=== PATIENT | male | born 1990 | race Caucasian/White ===

== ENCOUNTER 2020-11-29 17:29 | Emergency (ER) | payer BC, SELFPAY ==
[2020-11-29 18:15] VITALS: BP 150/76; PULSE 84; RESP 18; TEMP 36.6; O2SAT 99; BMI 31.9
--- NOTE | 2020-11-29 19:29 | ED_ITS ---
HPI - Eye Problem General Chief complaint: Eye Problems Stated complaint: FB in eye - work related Time Seen by Provider: 11/29/20 19:21 Source: patient Mode of arrival: ambulatory Limitations: no limitations History of Present Illness HPI Narrative: 30 y/o male presenting with acute onset of right eye pain, redness and watering after he had material go into his eye while working on wiring in a ceiling. He was not wearing protective eyewear. He does not wear contacts or glasses. He reports immediate pain and difficulty keeping his eye open. 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 chief complaint: eye pain and eye redness Onset (ago): hour(s) (2) Onset description: sudden Duration: constant Location: right eye Eye Symptoms: redness and pain Place: work Mechanism: direct trauma Severity: moderate If Pain, Quality: sharp and aching Associated symptoms: none Treatments Prior to Arrival: irrigated eye Related Data Patient tetanus UTD: Yes Previous Rx's Medication Instructions Recorded gentamicin 1 drp OPHTHALMIC-RIGHT Q4H #5 ml 11/29/20 Allergies Allergy/AdvReac Type Severity Reaction Status Date / Time No Known Allergies Allergy Verified 11/29/20 18:15 Review of Systems Review of Systems: Constitutional: No Fever, No Chills ENT/Mouth: No sore throat, No Rhinorrhea, No Swallowing Difficulty Eyes: + Eye Pain, No Swelling, + Redness, No vision changes Skin: No Skin Lesions, No rash Neuro: No Weakness, No Numbness, No Dizziness, No Headache Heme/Lymph: No Bruising PMFSH Past Medical History Attestation statement: The following information was validated with the patient. Medical History Patient denies medical problems Social History Social History Advance Directives: No Advance Directives Information Provided: Yes Physical Exam Vital Signs: Vital Signs: Last Vital Signs Temp 97.8 F 11/29/20 18:15 Pulse 84 11/29/20 18:15 Resp 18 11/29/20 18:15 BP 150/76 H 11/29/20 18:15 Pulse Ox 99 11/29/20 18:15 Body Mass Index 31.9 Const: General: cooperative, healthy appearing, alert and awake HENMT: Head: Yes normal to inspection, Yes normocephalic and Yes atraumatic Ears: hearing grossly normal bilaterally General nose exam: Normal external nose present Face and sinus: Yes normal facial exam Eyes: Alignment and Position: alignment normal and position normal Perio rbital: periorbital findings normal Eyelids: Yes eyelids normal Conjunctivae: conjunctivae normal Sclerae: scleral abnormal right scleral injection lateral Corneas: corneas normal Pupils: Equal, round and reactive pupils present EOM: EOMs intact bilaterally Neck: Neck: Yes normal visual inspection Chest: Chest palpation & inspection: normal inspection of the chest Resp: Effort & Inspection: normal respiratory effort and able to speak in complete sentences Skin: General skin exam: no rashes or lesions noted Neuro: General: patient oriented x3 and gait normal Cranial nerves: Yes Equal, round and reactive pupils present Extrem: General: Yes normal to inspection Psych: Appearance: grossly normal Mental Status: mental status grossly normal Course Course Course Narrative: 30 y/o male presenting with foreign body sensation after working on a ceiling/wiring. Fluorescene exam reveals a small linear corneal abrasion at 9 o'clock. No visible foreign body identified. Will treat with topical antibiotics. He is feeling better after tetracaine and irrigation. Stable for d/c. Critical Care Time Critical Care Time Critical Care Time: No Discharge Plan Discharge Clinical Impression: Corneal abrasion Qualifiers: Encounter type: initial encounter Laterality: right Qualified Code(s): S05.01XA - Injury of conjunctiva and corneal abrasion without foreign body, right eye, initial encounter Patient Disposition: Home, Self-Care Instructions: Corneal Abrasion (ED) Additional Instructions: Use the prescribed antibiotic eye drops as directed. Take Motrin and/or Tylenol as needed for pain. Do not scratch or rub your eye. Come back to the ER if symptoms worsen. Prescriptions: New gentamicin 0.3 % drops 1 drp ophthalmic-Right Q4H Qty: 5 RF: 0 Interventions: ED Discharge Assessment Last Done: 11/29/20 20:13 Discharge Date/Time: 11/29/20 20:15
[2020-11-29] MEDS: Fluorescein Sodium STRIP 1 STRIP EYE-BOTH (19:48)
[2020-11-29] MEDS: Tetracaine HCl/PF 0.5% Oph Sol 4 ML DROPS 3 DROP EYE-RIGHT (19:48)
[2020-11-29] MEDS: Ibuprofen 600 MG TABLET PO (19:48)
== END 2020-11-29 20:15 | disposition home or self-care (01) ==
PROVIDERS: Emergency Provider Emergency Medicine
DX: S05.01XA Injury of conjunctiva and corneal abrasion without foreign body, right eye, initial encounter (principal); X58.XXXA Exposure to other specified factors, initial encounter; Y93.89 Activity, other specified; Y92.019 Unspecified place in single-family (private) house as the place of occurrence of the external cause; Y99.9 Unspecified external cause status
CPT/HCPCS: 99284

== ENCOUNTER 2021-04-28 08:52 | Outpatient (REF) | payer BC, SELFPAY | END 2021-04-28 08:53 | disposition home or self-care (01) | LOC: HO.HMGCLDS 08:52 | PROVIDERS: Visit Provider Internal Medicine | DX: Z20.822 Contact with and (suspected) exposure to COVID-19 (principal) | CPT/HCPCS: C9803; U0003; U0005 ==

== ENCOUNTER 2025-07-08 14:50 | Outpatient (AMB) | payer OTHER, SELFPAY ==
--- NOTE | 2025-07-08 15:03 | MHC.OFFWIV ---
Intake Vital Signs 07/08/25 15:05 Height 5 ft 9 in Weight 218 lb BMI 32.2 BP 136/80 Blood Pressure Location Rt brachial Position Sitting Pulse 89 Pulse Source Pulse Oximeter Temp 98.2 F Temp Source Oral Pulse Oximetry (%) 98 Oxygen Delivery Method Room Air Intake Visit Reasons: EP Left foot pain Intake Note: Patient presents with c/o left foot pain related to dropping a box of floor tile on his foot 2 days ago Allergies No Known Allergies Allergy (Verified 07/08/25 15:07) Medication List - Last Reconciled 07/08/25 by Georgia Whatley MD No Known Home Meds Do you need a note to return to daycare/school/sports/work: No HPI HPI Comments History of Present Illness Details Patient was informed and verbally consented to the use of an ambient scribe for clinic note documentation during the visit. History of Present Illness The patient is a 35-year-old male presenting with acute pain with left foot. Foot Contusion: - Incident occurred on Saturday when a box of tiles fell on the patient's left foot. - Box contained three to four tiles each. - Immediate minimal pain was noted at a severity of 1 out of 10. - Pain significantly increased to 10 out of 10 when descending stairs the following night after planting his foot. - Subsequent severity was reduced to 5 out of 10 by the next morning. - Dull ache persists, worsening with weight-bearing activities. - Absence of tingling sensations in toes. - No numbness reported. Review of Systems - Musculoskeletal: Reports acute pain in the right foot aggravated by weight-bearing - Neurological: Denies tingling in toes, no numbness reported. Physical Exam General Appearance: Normal appearance, well developed. No acute distress Head: Normocephalic, atraumatic Pulmonary: No respiratory distress. Speaking in full sentences Musculoskeletal: No obvious deformities noted of the left foot. No ecchymosis, swelling, or open wounds noted. No focal tenderness along the proximal tibia/fibula, medial/lateral malleolus, metatarsal, or the navicular bone. Sensation intact at the medial/lateral malleolus, lateral 5th toe, and 1st dorsal web space. +2 dorsalis pedis pulses. Capillary refill < 2 sec Normal gait Mental Status: Alert and Oriented x 3 Psychiatric: Normal mood. Normal affect. [facility] Medical History Patient denies medical problems Physical Exam Vital Signs: Last Vital Signs Temp 98.2 F 07/08/25 15:05 Pulse 89 07/08/25 15:05 BP 136/80 07/08/25 15:05 Pulse Ox 98 07/08/25 15:05 Oxygen Delivery Method Room Air 07/08/25 15:05 BMI result Body Mass Index 32.2 Assessment & Plan Assessment & Plan (1) Left foot pain: Code(s): M79.672 - Pain in left foot Plan - The patient has sustained a foot contusion from a box of tiles falling on the left foot with exacerbation the next day after planting his foot on the floor - Pain has since slightly improved - Discussed potential X-ray, however after shared decision making, will hold off at this time as normal gait, improving pain, and no body tenderness to palpation- low concern for fracture - Recommends continuing icing, elevation, and ibuprofen as needed - VEL wrap applied to help with support - Advise reassessment if symptoms persist despite conservative management Medications: Discontinued gentamicin 0.3% Discontinued Reason: Patient Completed Course 1 drp ophthalmic-Right Q4H 5 mL 0RF Coding Level of Care Code New Pt Level 3 (29368) Diagnoses Left foot pain M79.672
[2025-07-08 15:05] VITALS: BP 136/80; PULSE 89; TEMP 36.8; O2SAT 98; BMI 32.2
== END 2025-07-08 16:10 | disposition home or self-care (01) ==
PROVIDERS: Visit Provider Family Medicine
DX: M79.672 Pain in left foot (principal)